=== PATIENT | female | born 1945 | race American Indian/Alaskan Native ===

== ENCOUNTER 2018-03-01 23:59 | Inpatient (IN) | payer OTHER ==
[2018-03-02 00:12] VITALS: BMI 19.3
[2018-03-02] MEDS ORDERED: Sodium Chloride 0.9% 500 ML IV STA (00:28)
--- NOTE | 2018-03-02 00:35 | ED PDOC ---
Arrival/HPI - General Chief Complaint: Medical Clearance Time Seen by Provider: 03/02/18 00:04 Historian: Patient - History of Present Illness Narrative History of Present Illness (Text): 03/02/18 00:32 Savanah Pace is a 72 year old female, with an unknown medical history, who presents to the emergency department from [facility] for AMS and leg pain. Patient is a poor historian. Patient is acting bizarre and has times and dates confused. Patient denies any previous complaints. Limited HPI and ROS due to patient's mental status. Time/Duration: Prior to Arrival Symptom Onset: Gradual Symptom Course: Unchanged Activities at Onset: Light Context: Home ([facility]) Past Medical History - Provider Review Nursing Documentation Reviewed: Yes - Psychiatric Hx Substance Use: No - Anesthesia Hx Anesthesia: No Hx Anesthesia Reactions: No Hx Malignant Hyperthermia: No Family/Social History - Physician Review Nursing Documentation Reviewed: Yes Family/Social History: Unknown Family HX Smoking Status: Smoker Currrent Status Unknown Hx Alcohol Use: No Hx Substance Use: No Allergies/Home Meds Allergies/Adverse Reactions: Allergies No Known Allergies Allergy (Verified 03/02/18 00:13) Home Medications: Home Meds Medication Instructions Recorded Confirmed Unobtainable 03/02/18 03/02/18 Review of Systems - Review of Systems Systems not reviewed;Unavailable: Altered Mental Status Physical Exam Vital Signs Reviewed: Yes Vital Signs Temp Pulse Resp BP Pulse Ox 03/02/18 06:14 88 18 131/77 98 03/02/18 03:58 98.4 F 91 H 18 138/70 98 03/02/18 03:00 91 H 142/72 03/02/18 01:50 101.9 F H 03/02/18 01:11 101.9 F H 110 H 18 171/81 H 97 03/02/18 00:15 99.8 F H 110 H 18 171/81 H 97 Temperature: Febrile Blood Pressure: Hypertensive Pulse: Tachycardic Respiratory Rate: Normal Appearance: Positive for: Well-Appearing, Non-Toxic, Comfortable Pain Distress: None Mental Status: Positive for: Confused. No: Alert and Oriented X 3 - Systems Exam Head: Present: Atraumatic, Normocephalic Pupils: Present: PERRL Extroacular Muscles: Present: EOMI Conjunctiva: Present: Normal Ears: Present: Normal, NORMAL TM, Erythema, Normal Canal, TM Bulging, Fluid, TM Perf, Other Mouth: Present: Moist Mucous Membranes Neck: Present: Normal Range of Motion Respiratory/Chest: Present: Clear to Auscultation, Good Air Exchange. No: Respiratory Distress, Accessory Muscle Use Cardiovascular: Present: Regular Rate and Rhythm, Normal S1, S2. No: Murmurs Abdomen: Present: Normal Bowel Sounds. No: Tenderness, Distention, Peritoneal Signs Back: Present: Normal Inspection Upper Extremity: Present: Normal Inspection. No: Cyanosis, Edema Lower Extremity: Present: Normal Inspection. No: Edema Neurological: Present: GCS=15, CN II-XII Intact, Speech Normal Skin: Present: Warm, Dry, Normal Color. No: Rashes Psychiatric: Present: Alert, Other (Acting bizarre). No: Oriented x 3 ( Oriented x 1) Medical Decision Making ED Course and Treatment: 03/02/18 00:38 Impression: 72 year old female presents to the emergency department from [facility] for AMS. pt denies complaints at this time. pt febrile on arrival. states lives by herself at [facility]. no famiy bedside. pt cannot provide further hx- suspect sepsis Plan: -- VBS shock panel -- CT Head -- CT Chest -- EKG -- Labs -- Cardiac Enzymes -- Acetaminophen -- Magnesium -- Salicylate -- Urine Culture -- Blood Culture -- Influenza A B -- Urinalysis -- Reassess and disposition Progress Notes: 03/02/18 01:04 EKG reviewed, shows Sinus Tachycardia at 101 bpm. LVH no previous for comparison. Non-specific T wave changes 03/02/18 02:05 CT Head reviewed, shows: Brain: Periventricular hypoattenuation is likely related to small vessel disease. Limited evaluation due to significant streak artifact. There is a 4.9 mm focal slight high density in the left temporal , on image 5 series 6 it is unclear if its artifactual. Consider close interval followup followup as clinically indicated. Ventricles: Unremarkable. No ventriculomegaly. Bones/joints: Unremarkable. No acute fracture. Soft tissues: Unremarkable. Sinuses: Unremarkable as visualized. No acute sinusitis. Mastoid air cells: Unremarkable as visualized. No mastoid effusion. IMPRESSION: Limited evaluation due to significant streak artifact. There is a 4.9 mm focal slight high density in the left temporal , on image 5 series 6 it is unclear if its artifactual. Consider close interval followup followup as clinically indicated. 03/02/18 02:21 noted fever, leukocytosis, pt given empiric levaquin as she reports mild cough and rhinorrhea. covered with tamiflu. case discussed wiht dr fernández accepts for hospitalist for ams, sepsis 03/02/18 04:03 CT Chest reviewd, shows: Chest: Prominent thyroid. 2 cm right upper lobe nodule situated along the minor fissure. Abnormal reticular prominence in the right upper lobe and left lower lobe. No dense consolidation. Basilar atelectasis. Small mediastinal lymph nodes present. Normal caliber aorta. Tiny bilateral pleural and pericardial effusions. Visualized upper abdomen is unremarkable. No pneumothorax. Mild degenerative change of the spine. IMPRESSION: Multilobar pneumonia, with a more focal area of masslike prominence in the inferior right upper lobe along the fissure. Followup to complete resolution recommended. - Lab Interpretations Lab Results: 03/02/18 00:45 03/02/18 00:45 Lab Results 03/02/18 02:00: Urine Opiates Screen Positive H, Urine Methadone Screen Negative , Ur Barbiturates Screen Negative, Ur Phencyclidine Scrn Negative, Ur Amphetamines Screen Negative, U Benzodiazepines Scrn Negative, U Oth Cocaine Metabols Negative, U Cannabinoids Screen Negative 03/02/18 02:00: Urine Color Yellow, Urine Appearance Clear, Urine pH 7.0, Ur Specific [place] 1.015, Urine Protein Negative, Urine Glucose (UA) Negative, Urine Ketones Negative, Urine Blood Moderate H, Urine Nitrate Negative, Urine Bilirubin Negative, Urine Urobilinogen 0.2, Ur Leukocyte Esterase Negative, Urine RBC 2 - 5, Urine WBC 0 - 2, Ur Epithelial Cells 0 - 2 03/02/18 00:45: Alcohol, Quantitative < 10 03/02/18 00:45: Salicylates < 1 L, Acetaminophen < 10.0 L 03/02/18 00:45: Sodium 140, Chloride 103, Potassium 4.2, Carbon Dioxide 28, Anion Gap 13, BUN 25 H, Creatinine 1.3 H, Est GFR ( Amer) 48, Est GFR ( Non-Af Amer) 40, Random Glucose 108, Calcium 9.8, Magnesium 1.9, Total Bilirubin 0.3, AST 47 H, ALT 27, Alkaline Phosphatase 141 H, Lactate Dehydrogenase 643, Total Creatine Kinase 87, Troponin I 0.05, Total Protein 7.9 , Albumin 3.9, Globulin 4.0, Albumin/Globulin Ratio 1.0 L 03/02/18 00:45: PT 12.5, INR 1.09 H, APTT 31.8 03/02/18 00:45: WBC 14.0 H, RBC 3.95, Hgb 11.8 L, Hct 36.3, MCV 91.9, MCH 29.9, MCHC 32.5, RDW 13.5, Plt Count 298, MPV 9.0, Gran % 85.5 H, Lymph % (Auto) 7.1 L , [place] % (Auto) 3.6, Eos % (Auto) 3.7, Baso % (Auto) 0.1, Gran # 11.97 H, Lymph # (Auto) 1.0 L, [place] # (Auto) 0.5, Eos # (Auto) 0.5, Baso # (Auto) 0.02 03/02/18 00:45: Influenza Typ A,B (EIA) Negative for flu a/b 03/02/18 00:45: pO2 29 L, VBG pH 7.42, VBG pCO2 44.0, VBG HCO3 28.5 H, VBG Total CO2 29.9 H, VBG O2 Sat (Calc) 61.6, VBG Base Excess 3.4 H, VBG Potassium 4.1, Sodium 139.0, Chloride 104.0, Glucose 109 H, Lactate 0.9, FiO2 21.0, Venous Blood Potassium 4.1 - RAD Interpretation Radiology Orders: 03/02/18 00:26 CHEST ONE VIEW [RAD] Stat 03/02/18 00:27 HEAD W/O CONTRAST [CT] Stat - Medication Orders Current Medication Orders: Acetaminophen (Tylenol 325mg Tab) 650 mg PO Q6H PRN PRN Reason: Fever >100.4 F Albuterol/Ipratropium (Duoneb 3 Mg/0.5 Mg (3 Ml) Ud) 3 ml IH Q2H PRN PRN Reason: Shortness of Breath Amlodipine Besylate (Norvasc) 5 mg PO DAILY ELMER Last Admin: 03/02/18 03:00 Dose: 5 mg MAR Pulse and Blood Pressure Document 03/02/18 03:00 AD (Rec: 03/02/18 03:57 AD [id number]) Pulse Pulse Rate (60-90) 91 Blood Pressure Blood Pressure (100/60-150/90) 142/72 Heparin Sodium (Porcine) (Heparin) 5,000 units SC Q12 ELMER PRN Reason: Protocol Sodium Chloride (Sodium Chloride 0.9%) 1,000 mls @ 100 mls/hr IV .Q10H ELMER Last Admin: 03/02/18 03:57 Dose: 100 mls/hr eMAR Start Stop Document 03/02/18 03:57 AD (Rec: 03/02/18 03:58 AD [id number]) Intravenous Solution Start Date 03/02/18 Start Time 02:30 Levofloxacin/Dextrose (Levaquin 750mg) 750 mg in 150 mls @ 100 mls/hr IVPB Q48H ELMER PRN Reason: Protocol Pantoprazole Sodium (Protonix Ec Tab) 40 mg PO 0600 ELMER Discontinued Medications Acetaminophen (Tylenol 325mg Tab) 975 mg PO STAT STA Stop: 03/02/18 00:28 Last Admin: 03/02/18 01:50 Dose: 975 mg MAR Pain/Vitals Document 03/02/18 01:50 AD (Rec: 03/02/18 01:50 AD [id number]) Vitals Temperature (97.6 F-99.6 F) 101.9 F Temperature Source Rectal Sodium Chloride (Sodium Chloride 0.9%) 500 mls @ 999 mls/hr IV .Q31M STA Stop: 03/02/18 00:58 Last Admin: 03/02/18 01:10 Dose: 999 mls/hr eMAR Start Stop Document 03/02/18 01:10 AD (Rec: 03/02/18 01:50 AD [id number]) Intravenous Solution Start Date 03/02/18 Start Time 01:50 Levofloxacin/Dextrose (Levaquin 750mg) 750 mg in 150 mls @ 100 mls/hr IVPB STAT STA PRN Reason: Protocol Stop: 03/02/18 02:45 Last Admin: 03/02/18 01:50 Dose: 100 mls/hr eMAR Start Stop Document 03/02/18 01:50 AD (Rec: 03/02/18 01:50 AD [id number]) Intravenous Solution Start Date 03/02/18 Start Time 01:50 Oseltamivir Phosphate (Tamiflu Cap) 75 mg PO STAT STA PRN Reason: Protocol Stop: 03/02/18 01:33 Last Admin: 03/02/18 01:50 Dose: 75 mg - Kemibe Statement The provider has reviewed the documentation as recorded by the Kemibsugey Davis All medical record entries made by the Kemibsugey were at my direction and personally dictated by me. I have reviewed the chart and agree that the record accurately reflects my personal performance of the history, physical exam, medical decision making, and the department course for this patient. I have also personally directed, reviewed, and agree with the discharge instructions and disposition. Disposition/Present on Arrival - Present on Arrival Any Indicators Present on Arrival: No History of DVT/PE: No History of Uncontrolled Diabetes: No Urinary Catheter: No History of Decub. Ulcer: No History Surgical Site Infection Following: None - Disposition Have Diagnosis and Disposition been Completed?: Yes Diagnosis: Pneumonia, Altered mental state Disposition: HOSPITALIZED Disposition Time: 04:00 Condition: FAIR
[2018-03-02 01:08] LABS: BASO # 0.02 K/mm3 (0.0-2.0); BASO % 0.1 % (0.0-3.0); EOS # 0.5 (0.0-0.7); EOS % 3.7 % (1.5-5.0); GRAN # 11.97 (1.4-6.5); GRAN % 85.5 % (50.0-68.0); HEMOGLOBIN 11.8 g/dL (12.0-16.0); LYMPH % 7.1 % (22.0-35.0); MEAN CELL VOLUME 91.9 fl (80.0-105.0); MEAN CORPUSCULAR HEMOGLOBIN 29.9 pg (25.0-35.0); MEAN CORPUSCULAR HGB CONC 32.5 g/dl (31.0-37.0); MONO # 0.5 (0.1-0.6); MONO % 3.6 % (1.0-6.0); RBC 3.95 10^6/uL (3.5-6.1); RED CELL DISTRIBUTION WIDTH 13.5 % (11.5-14.5)
[2018-03-02] MEDS ORDERED: cefTRIAXone 1 gm 1 GM/100 ML BAG IVPB STA (01:10)
[2018-03-02 01:13] LABS: VENOUS BLOOD GAS BASE EXCESS 3.4 mmol/L (0.0-2.0); VENOUS BLOOD GAS PO2 29 mm/Hg (30-55); VENOUS BLOOD PH 7.42 (7.32-7.43)
[2018-03-02] MEDS ORDERED: levoFLOXacin 750 mg in D5W 750 MG/150 ML BAG IVPB STA (01:16)
[2018-03-02 01:24] LABS: ALBUMIN 3.9 g/dL (3.0-4.8); CALCIUM 9.8 mg/dL (8.4-10.5)
[2018-03-02 01:28] LABS: INR 1.09 (0.93-1.08); PARTIAL THROMBOPLASTIN TIME 31.8 Seconds (25.1-36.5); PROTHROMBIN TIME 12.5 SECONDS (9.4-12.5)
[2018-03-02 01:35] LABS: TROPONIN I 0.05 ng/mL
[2018-03-02 01:43] LABS: ACETAMINOPHEN < 10.0 ug/ml (10.0-20.0); SALICYLATE < 1 mg/dL (2.0-20.0)
[2018-03-02 02:30] LABS: URINE BILIRUBIN NEGATIVE (NEGATIVE); URINE BLOOD MODERATE (NEGATIVE); URINE GLUCOSE (UA) NEGATIVE (NEGATIVE); URINE LEUKOCYTE ESTERASE NEGATIVE Leu/uL (NEGATIVE); URINE PROTEIN NEGATIVE mg/dL (<30 mg/dL); URINE UROBILINOGEN 0.2 E.U./dL (<1 E.U./dL)
[2018-03-02 02:35] LABS: URINE APPEARANCE CLEAR (CLEAR); URINE COLOR YELLOW (YELLOW)
[2018-03-02 02:48] LABS: BARBITURATES, UR NEGATIVE (NEGATIVE); BENZODIAZEPINES, UR NEGATIVE (NEGATIVE); OPIATES, UR POSITIVE (NEGATIVE); PHENCYCLIDINE, UR NEGATIVE (NEGATIVE)
--- NOTE | 2018-03-02 02:50 | CP.PCM.HP ---
<Francis Dupree - Last Filed: 03/02/18 02:35> History of Present Illness - History of Present Illness History of Present Illness: CC: AMS Pt is a 72 yo F with questionable PMH of asthma, urinary incontinence, HTN, UT, and CVA brought to ED by EMS due to AMS. Pt is a poor historian. Pt states that she was feeling short of breath earlier today, above her baseline dyspnea due to asthma. However, at the time of interview patient did not have any shortness of breath. According to ED notes, patient was complaining of leg pain, but denied leg pain on interview. Pt denies CP, SOB, n/v/d, abdominal pain, chills, LI, or dizziness. Further HPI, ROS, and medical history limited due to patient' s current mental status. PMH: Asthma, urinary incontinence, HTN, UT, and CVA Surg: Denied All: NKDA SH: 3-4 cigarettes/day for 40 yrs (formerly 2 ppd); denied EtOH or illicit drug use FHx: Non-contributory PMD: [place] Present on Admission - Present on Admission Any Indicators Present on Admission: No Review of Systems - Review of Systems Review of Systems: 12 point ROS limited due to patient's current mental status. Past Patient History - Past Social History Smoking Status: Smoker Currrent Status Unknown - PSYCHIATRIC Hx Substance Use: No - SURGICAL HISTORY Hx Surgeries: No - ANESTHESIA Hx Anesthesia: No Hx Anesthesia Reactions: No Hx Malignant Hyperthermia: No Meds Allergies/Adverse Reactions: Allergies Allergy/AdvReac Type Severity Reaction Status Date / Time No Known Allergies Allergy Verified 03/02/18 00:13 Physical Exam - Constitutional Appears: No Acute Distress - Head Exam Head Exam: NORMAL INSPECTION - Eye Exam Eye Exam: Normal appearance - ENT Exam ENT Exam: Normal Exam - Neck Exam Neck exam: Positive for: Normal Inspection - Respiratory Exam Respiratory Exam: Clear to Auscultation Bilateral. absent: Decreased Breath Sounds, Rales, Rhonchi, Wheezes, Respiratory Distress - Cardiovascular Exam Cardiovascular Exam: Tachycardia, +S1, +S2. absent: Diastolic murmur, Gallop, Rubs, Systolic Murmur - GI/Abdominal Exam GI & Abdominal Exam: Soft. absent: Distended, Guarding, Rebound, Tenderness - Extremities Exam Extremities exam: Positive for: normal inspection - Back Exam Back exam: NORMAL INSPECTION - Neurological Exam Neurological exam: Alert, CN II-XII Intact Additional comments: oriented x1 - Skin Skin Exam: Dry, Intact, Normal Color, Warm Results - Vital Signs Recent Vital Signs: Last Vital Signs Temp 101.9 F H 03/02/18 01:50 Pulse 110 H 03/02/18 01:11 Resp 18 03/02/18 01:11 BP 171/81 H 03/02/18 01:11 Pulse Ox 97 03/02/18 01:11 - Labs Result Diagrams: 03/02/18 00:45 03/02/18 00:45 Labs: Laboratory Results - last 24 hr 03/02/18 03/02/18 03/02/18 00:45 00:45 00:45 WBC 14.0 H RBC 3.95 Hgb 11.8 L Hct 36.3 MCV 91.9 MCH 29.9 MCHC 32.5 RDW 13.5 Plt Count 298 MPV 9.0 Gran % 85.5 H Lymph % (Auto) 7.1 L [place] % (Auto) 3.6 Eos % (Auto) 3.7 Baso % (Auto) 0.1 Gran # 11.97 H Lymph # (Auto) 1.0 L [place] # (Auto) 0.5 Eos # (Auto) 0.5 Baso # (Auto) 0.02 PT INR APTT pO2 29 L VBG pH 7.42 VBG pCO2 44.0 VBG HCO3 28.5 H VBG Total CO2 29.9 H VBG O2 Sat (Calc) 61.6 VBG Base Excess 3.4 H VBG Potassium 4.1 Sodium 139.0 Chloride 104.0 Glucose 109 H Lactate 0.9 FiO2 21.0 Potassium Carbon Dioxide Anion Gap BUN Creatinine Est GFR ( Amer) Est GFR (Non-Af Amer) Random Glucose Calcium Magnesium Total Bilirubin AST ALT Alkaline Phosphatase Lactate Dehydrogenase Total Creatine Kinase Troponin I Total Protein Albumin Globulin Albumin/Globulin Ratio Venous Blood Potassium 4.1 Urine Color Urine Appearance Urine pH Ur Specific House Urine Protein Urine Glucose (UA) Urine Ketones Urine Blood Urine Nitrate Urine Bilirubin Urine Urobilinogen Ur Leukocyte Esterase Salicylates Acetaminophen Alcohol, Quantitative Influenza Typ A,B (EIA) Negative for flu a/b 03/02/18 03/02/18 03/02/18 00:45 00:45 00:45 WBC RBC Hgb Hct MCV MCH MCHC RDW Plt Count MPV Gran % Lymph % (Auto) [place] % (Auto) Eos % (Auto) Baso % (Auto) Gran # Lymph # (Auto) [place] # (Auto) Eos # (Auto) Baso # (Auto) PT 12.5 INR 1.09 H APTT 31.8 pO2 VBG pH VBG pCO2 VBG HCO3 VBG Total CO2 VBG O2 Sat (Calc) VBG Base Excess VBG Potassium Sodium 140 Chloride 103 Glucose Lactate FiO2 Potassium 4.2 Carbon Dioxide 28 Anion Gap 13 BUN 25 H Creatinine 1.3 H Est GFR ( Amer) 48 Est GFR (Non-Af Amer) 40 Random Glucose 108 Calcium 9.8 Magnesium 1.9 Total Bilirubin 0.3 AST 47 H ALT 27 Alkaline Phosphatase 141 H Lactate Dehydrogenase 643 Total Creatine Kinase 87 Troponin I 0.05 Total Protein 7.9 Albumin 3.9 Globulin 4.0 Albumin/Globulin Ratio 1.0 L Venous Blood Potassium Urine Color Urine Appearance Urine pH Ur Specific House Urine Protein Urine Glucose (UA) Urine Ketones Urine Blood Urine Nitrate Urine Bilirubin Urine Urobilinogen Ur Leukocyte Esterase Salicylates < 1 L Acetaminophen < 10.0 L Alcohol, Quantitative Influenza Typ A,B (EIA) 03/02/18 03/02/18 00:45 02:00 WBC RBC Hgb Hct MCV MCH MCHC RDW Plt Count MPV Gran % Lymph % (Auto) [place] % (Auto) Eos % (Auto) Baso % (Auto) Gran # Lymph # (Auto) [place] # (Auto) Eos # (Auto) Baso # (Auto) PT INR APTT pO2 VBG pH VBG pCO2 VBG HCO3 VBG Total CO2 VBG O2 Sat (Calc) VBG Base Excess VBG Potassium Sodium Chloride Glucose Lactate FiO2 Potassium Carbon Dioxide Anion Gap BUN Creatinine Est GFR ( Amer) Est GFR (Non-Af Amer) Random Glucose Calcium Magnesium Total Bilirubin AST ALT Alkaline Phosphatase Lactate Dehydrogenase Total Creatine Kinase Troponin I Total Protein Albumin Globulin Albumin/Globulin Ratio Venous Blood Potassium Urine Color Yellow Urine Appearance Clear Urine pH 7.0 Ur Specific [place] 1.015 Urine Protein Negative Urine Glucose (UA) Negative Urine Ketones Negative Urine Blood Moderate H Urine Nitrate Negative Urine Bilirubin Negative Urine Urobilinogen 0.2 Ur Leukocyte Esterase Negative Salicylates Acetaminophen Alcohol, Quantitative < 10 Influenza Typ A,B (EIA) Assessment & Plan - Assessment and Plan (Free Text) Assessment: 72 yo F with PMH of asthma, HTN, UT, stroke admitted for sepsis of unclear etiology. Plan: 1. AMS 2/2 Sepsis - Etiology unclear, possibly 2/2 pneumonia - Febrile with leukocytosis - CXR shows possible infiltrate near right hilar region; follow up official read by radiologist - CT head showed 4.9 mm focal slight high density in the left temporal - Trop indeterminate x1, will trend x2 - EKG showed sinus tachycardia, rate 101, LVH, and non-specific t-wave changes - UA negative - Influenza negative Tamiflu given in ED prophylactically Droplet precautions for 24 hrs - VBG: pH 7.42, pO2 29, pCO2 44, lactate 0.9 - High res chest CT ordered - Procal ordered - Blood and urine cultures ordered - Levaquin - Tylenol prn for fever 2. JOSE - Likely prerenal - IVF - Cont to monitor 3. HTN - Norvasc 4. Asthma - Duoneb prn GI/DVT PPx - Protonix - Heparin Dispo: Will need follow up with Dr. Parham or pharmacy in AM for home medications. Pt seen and discussed in detail with Dr. Graves. Pramod Dupree, PGY1 <Andre Graves - Last Filed: 03/02/18 05:38> Results - Vital Signs Recent Vital Signs: Last Vital Signs Temp 98.4 F 03/02/18 03:58 Pulse 91 H 03/02/18 03:58 Resp 18 03/02/18 03:58 BP 138/70 03/02/18 03:58 Pulse Ox 98 03/02/18 03:58 - Labs Result Diagrams: 03/02/18 00:45 03/02/18 00:45 Attending/Attestation - Attestation I have personally seen and examined this patient.: Yes I have fully participated in the care of the patient.: Yes I have reviewed all pertinent clinical information: Yes Notes (Text): 03/02/18 05:38 Patient was seen when she was in bed # 7 in the ER . Agree with history , physical examination, assessment and plan.
[2018-03-02] MEDS ORDERED: Albuterol-Ipratrop 3 mg / 0.5 (3 ml) UD IH PRN (02:51)
[2018-03-02 02:52] LABS: URINE EPITHELIAL CELLS 0 - 2 /hpf (0-5); URINE WBC 0 - 2 /hpf (0-6)
[2018-03-02] MEDS: Sodium Chloride 0.9% 1,000 ML IV SCH ×2 (03:57→13:58)
[2018-03-02] MEDS: Pantoprazole 40 mg EC Tab PO SCH (06:15)
--- NOTE | 2018-03-02 09:58 | RAD ---
PROCEDURE: CHEST RADIOGRAPH, 1 VIEW HISTORY: ams COMPARISON: None available. FINDINGS: LUNGS: There is mild to moderate vascular congestion. There is no focal consolidation PLEURA: No pneumothorax or pleural fluid seen. CARDIOVASCULAR: Normal. OSSEOUS STRUCTURES: No significant abnormalities. VISUALIZED UPPER ABDOMEN: Normal. OTHER FINDINGS: None. IMPRESSION: Mild to moderate vascular congestion
[2018-03-02] MEDS ORDERED: Vancomycin 500mg in NS 500 MG/100 ML BAG IVPB SCH (10:00)
[2018-03-02] MEDS: cefTRIAXone 1 gm 1 GM/100 ML BAG IVPB SCH (10:44)
--- NOTE | 2018-03-02 12:41 | CT ---
PROCEDURE: CT HEAD WITHOUT CONTRAST. HISTORY: Altered mental status COMPARISON: None available. TECHNIQUE: Axial computed tomography images were obtained through the head/brain without intravenous contrast. Examination is limited due to extensive streak artifacts. Radiation dose: Total exam DLP = 1673.89 mGy-cm. This CT exam was performed using one or more of the following dose reduction techniques: Automated exposure control, adjustment of the mA and/or kV according to patient size, and/or use of iterative reconstruction technique. FINDINGS: HEMORRHAGE: No intracranial hemorrhage. BRAIN: There are moderate chronic microangiopathic changes. There is no mass, mass effect or abnormal extra-axial fluid collection. There are coarse atherosclerotic calcifications in the cavernous carotid artery. There is an apparent 4 mm high attenuation area in the left temporal lobe (image 5, series) VENTRICLES: Unremarkable. No hydrocephalus. CALVARIUM: The skull base and calvarium are normal. PARANASAL SINUSES: Predominantly clear. MASTOID AIR CELLS: Predominantly clear. OTHER FINDINGS: None. IMPRESSION: No acute intracranial abnormality. Moderate chronic microangiopathic changes. 4 mm focal increased density in the left temporal lobe is nonspecific and could be artifactual however small parenchymal hemorrhage cannot be entirely excluded. Examination is limited due to extensive streak artifacts. Clinical correlation and if clinically indicated short-term CT follow-up is recommended. A preliminary report was provided by [employer].
[2018-03-02 12:50] LABS: BASO # 0.02 K/mm3 (0.0-2.0); BASO % 0.1 % (0.0-3.0); EOS # 1.7 (0.0-0.7); EOS % 12.1 % (1.5-5.0); GRAN # 9.71 (1.4-6.5); GRAN % 71.5 % (50.0-68.0); HEMOGLOBIN 12.2 g/dL (12.0-16.0); LYMPH # 1.4 (1.2-3.4); LYMPH % 10.4 % (22.0-35.0); MEAN CELL VOLUME 91.9 fl (80.0-105.0); MEAN CORPUSCULAR HGB CONC 32.7 g/dl (31.0-37.0); MEAN PLATELET VOLUME 9.3 fl (7.0-11.0); MONO # 0.8 (0.1-0.6); MONO % 5.9 % (1.0-6.0); RBC 4.06 10^6/uL (3.5-6.1); RED CELL DISTRIBUTION WIDTH 13.5 % (11.5-14.5); WHITE BLOOD COUNT 13.6 10^3/ul (4.5-11.0)
[2018-03-02 13:08] LABS: TROPONIN I 0.06 ng/mL
[2018-03-02 13:23] LABS: ALB/GLOB RATIO 0.9 (1.1-1.8); ALBUMIN 3.7 g/dL (3.0-4.8); CALCIUM 9.9 mg/dL (8.4-10.5)
--- NOTE | 2018-03-02 16:29 | CT ---
PROCEDURE: CT Chest without contrast HISTORY: r/o pna COMPARISON: None. TECHNIQUE: Contiguous axial images were obtained through the chest without intravenous contrast enhancement. Sagittal and coronal reconstructions were performed. Radiation dose (DLP): 268.02 mGy-cm. This CT exam was performed using one or more of the following dose reduction techniques: Automated exposure control, adjustment of the mA and/or kV according to patient size, and/or use of iterative reconstruction technique. FINDINGS: LUNGS: There are centrilobular nodules and tree-in-bud opacities in the right upper lobe and left lower lobe. There is also confluent airspace disease in the left lower lobe. There are increased reticular markings and honeycombing in the subpleural right upper lobe. There is subsegmental atelectasis in both lower lobes. Also noted is a 2.2 x 1.8 cm spiculated nodule in the right upper lobe along the minor fissure. MEDIASTINUM: Unremarkable thoracic aorta. No aneurysm. There is mild cardiomegaly and small pericardial effusion. No pathologic lymphadenopathy. PLEURA: No pleural fluid. No pneumothorax. BONES: No fracture. No destructive lesion. UPPER ABDOMEN: Grossly unremarkable. OTHER FINDINGS: There is an enlarged multinodular thyroid gland. IMPRESSION: Findings are most compatible with infectious bronchiolitis in the right upper lobe and left lower lobe. Two point 2 cm spiculated subpleural nodule in the right upper lobe. Correlation with histopathologic is recommended to exclude malignancy. Metoprolol
--- NOTE | 2018-03-02 18:33 | CP.PCM.CON ---
History of Present Illness - History of Present Illness History of Present Illness: Infectious Disease Consultation: March 02, 2018 72 yo AA female presented with AMS. The patient lives at assisted living facility. The patient has a long medical history and has an extensive hospitalization history at [facility] [place]. The patient has multiple chronic medical issues. She is familiar to me from [facility] [place] hospitalizations. Will check her prior records there. The patient has complained of SOB, leg pains, and headaches although not at the same time. PMHx: Asthma, Urinary incontinence, HTN, RI, CVA PSHx: none given Allergies: NKDA Social Hx: 3-4 cig/day for 40 years. No EtOH or illicit drug use. Active Medications Acetaminophen (Tylenol 325mg Tab) 650 mg PO Q6H PRN PRN Reason: Fever >100.4 F Albuterol/Ipratropium (Duoneb 3 Mg/0.5 Mg (3 Ml) Ud) 3 ml IH Q2H PRN PRN Reason: Shortness of Breath Amlodipine Besylate (Norvasc) 5 mg PO DAILY [facility] Last Admin: 03/02/18 03:00 Dose: 5 mg Heparin Sodium (Porcine) (Heparin) 5,000 units SC Q12 [facility] PRN Reason: Protocol Last Admin: 03/02/18 10:45 Dose: 5,000 units Sodium Chloride (Sodium Chloride 0.9%) 1,000 mls @ 100 mls/hr IV .Q10H [facility] Last Admin: 03/02/18 13:58 Dose: 100 mls/hr Ceftriaxone Sodium (Rocephin 1 Gram Ivpb) 1 gm in 100 mls @ 100 mls/hr IVPB DAILY [facility] PRN Reason: Protocol Last Admin: 03/02/18 10:44 Dose: 100 mls/hr Pantoprazole Sodium (Protonix Ec Tab) 40 mg PO 0600 [facility] Last Admin: 03/02/18 06:15 Dose: 40 mg Family Hx: none given ROS: Unable to obtain consistent information from the patient. Past Patient History - Past Social History Smoking Status: Light Smoker < 10 Cigarettes Daily - MUSCULOSKELETAL/RHEUMATOLOGICAL Hx Falls: No - PSYCHIATRIC Hx Substance Use: No - SURGICAL HISTORY Hx Surgeries: No - ANESTHESIA Hx Anesthesia: No Hx Anesthesia Reactions: No Hx Malignant Hyperthermia: No Meds Allergies/Adverse Reactions: Allergies Allergy/AdvReac Type Severity Reaction Status Date / Time No Known Allergies Allergy Verified 03/02/18 00:13 - Medications Medications: Current Medications Acetaminophen (Tylenol 325mg Tab) 650 mg PO Q6H PRN PRN Reason: Fever >100.4 F Albuterol/Ipratropium (Duoneb 3 Mg/0.5 Mg (3 Ml) Ud) 3 ml IH Q2H PRN PRN Reason: Shortness of Breath Amlodipine Besylate (Norvasc) 5 mg PO DAILY [facility] Last Admin: 03/02/18 03:00 Dose: 5 mg Heparin Sodium (Porcine) (Heparin) 5,000 units SC Q12 [facility] PRN Reason: Protocol Last Admin: 03/02/18 10:45 Dose: 5,000 units Sodium Chloride (Sodium Chloride 0.9%) 1,000 mls @ 100 mls/hr IV .Q10H [facility] Last Admin: 03/02/18 13:58 Dose: 100 mls/hr Ceftriaxone Sodium (Rocephin 1 Gram Ivpb) 1 gm in 100 mls @ 100 mls/hr IVPB DAILY [facility] PRN Reason: Protocol Last Admin: 03/02/18 10:44 Dose: 100 mls/hr Pantoprazole Sodium (Protonix Ec Tab) 40 mg PO 0600 [facility] Last Admin: 03/02/18 06:15 Dose: 40 mg Physical Exam - Constitutional Appears: No Acute Distress, Chronically Ill - Head Exam Head Exam: ATRAUMATIC, NORMOCEPHALIC - Eye Exam Eye Exam: EOMI, PERRL Pupil Exam: NORMAL ACCOMODATION, PERRL - ENT Exam ENT Exam: Mucous Membranes Moist, Normal External Ear Exam, TM's Normal Bilaterally - Neck Exam Neck exam: Positive for: Full Rom, Normal Inspection - Respiratory Exam Respiratory Exam: Decreased Breath Sounds. absent: Rales, Rhonchi, Wheezes - Cardiovascular Exam Cardiovascular Exam: Tachycardia, +S1, +S2 - GI/Abdominal Exam GI & Abdominal Exam: Normal Bowel Sounds, Soft. absent: Distended, Tenderness - Extremities Exam Extremities exam: Positive for: full ROM. Negative for: tenderness - Neurological Exam Neurological exam: Alert, CN II-XII Intact Additional comments: AAO x 1-2 - Psychiatric Exam Psychiatric exam: Normal Affect, Normal Mood Additional comments: forgetful - Skin Skin Exam: Intact, Normal Color Results - Vital Signs Recent Vital Signs: Last Vital Signs Temp 98.6 F 03/02/18 17:37 Pulse 77 03/02/18 17:37 Resp 20 03/02/18 17:37 BP 140/58 L 03/02/18 17:37 Pulse Ox 99 03/02/18 14:57 - Labs Result Diagrams: 03/02/18 12:40 03/02/18 12:40 Labs: Laboratory Results - last 24 hr 03/02/18 03/02/18 03/02/18 06:46 12:40 12:40 WBC 13.6 H RBC 4.06 Hgb 12.2 Hct 37.3 MCV 91.9 MCH 30.0 MCHC 32.7 RDW 13.5 Plt Count 307 MPV 9.3 Gran % 71.5 H Lymph % (Auto) 10.4 L Lyman % (Auto) 5.9 Eos % (Auto) 12.1 H Baso % (Auto) 0.1 Gran # 9.71 H Lymph # (Auto) 1.4 Lyman # (Auto) 0.8 H Eos # (Auto) 1.7 H Baso # (Auto) 0.02 Sodium 142 Potassium 4.6 Chloride 105 Carbon Dioxide 29 Anion Gap 12 BUN 20 Creatinine 1.2 Est GFR ( Amer) 53 Est GFR (Non-Af Amer) 44 Random Glucose 95 Calcium 9.9 Total Bilirubin 0.4 AST 30 ALT 32 Alkaline Phosphatase 129 H Troponin I 0.08 D 0.06 D Total Protein 7.8 Albumin 3.7 Globulin 4.2 Albumin/Globulin Ratio 0.9 L Assessment & Plan - Assessment and Plan (Free Text) Assessment: 72 yo female with presentation of AMS and SOB. The patient has leukocytosis. She had multiple medical issues. Cannot rule out sepsis. Influenza testing has been negative. Started on Levaquin in ER. Renal insufficiency. Extensive hospitalization history at [facility]. Will check records there as she had a recent hospitalization there. Started on rocephin for antibiotic therapy on medical floor. Andrade cultures. Leukocytosis is showing left shift. Supportive care. Thank you for allowing me to participate in the care of the patient, we will follow with you.
--- NOTE | 2018-03-02 19:35 | CARD ---
APPROVED REPORT EKG Measurement Heart [id number] <Conclusion> Sinus tachycardia Possible Left atrial enlargement Left ventricular hypertrophy with repolarization abnormality Abnormal ECG
[2018-03-03] MEDS: Sodium Chloride 0.9% 1,000 ML IV SCH ×3 (05:20→17:34)
[2018-03-03] MEDS: Pantoprazole 40 mg EC Tab PO SCH (05:32)
[2018-03-03 06:10] LABS: MEAN CELL VOLUME 91.1 fl (80.0-105.0); MEAN CORPUSCULAR HEMOGLOBIN 29.7 pg (25.0-35.0); MEAN CORPUSCULAR HGB CONC 32.6 g/dl (31.0-37.0); MEAN PLATELET VOLUME 9.4 fl (7.0-11.0); RBC 4.04 10^6/uL (3.5-6.1); RED CELL DISTRIBUTION WIDTH 13.6 % (11.5-14.5); WHITE BLOOD COUNT 9.3 10^3/ul (4.5-11.0)
[2018-03-03 06:39] LABS: ALB/GLOB RATIO 0.9 (1.1-1.8); ALBUMIN 3.3 g/dL (3.0-4.8); CALCIUM 9.5 mg/dL (8.4-10.5)
--- NOTE | 2018-03-03 08:51 | MRI ---
PROCEDURE: MRI BRAIN WITHOUT CONTRAST HISTORY: follow up CT / showed temporal area hyperdensity COMPARISON: None. TECHNIQUE: Multiplanar, multisequence MR images of the brain were obtained without intravenous contrast enhancement. FINDINGS: HEMORRHAGE: None DWI: No evidence of an acute or early subacute infarction. BRAIN PARENCHYMA: Good corticomedullary differentiation is seen. Reiterated diffuse cerebral atrophy and extensive chronic microangiopathy. No suspicious extra-axial fluid collection is identified and the midline brain anatomy appears grossly nonfocal as imaged VENTRICLES: Unremarkable. No hydrocephalus. CRANIUM: Unremarkable. ORBITS: Grossly unremarkable. PARANASAL SINUSES/MASTOIDS: Clear VASCULAR SYSTEM: Skull base flow voids intact. OTHER FINDINGS: None. IMPRESSION: No definitive acute intracranial findings. No definite intracranial hemorrhage appreciable. Minimal partial volume averaging with the bony left middle cranial fossa is felt to be the etiology of the hyperdensity at the inferior left temporal lobe in prior CT 03/02/2018. Concordant preliminary report from [facility], 03/02/2018.
[2018-03-03] MEDS: cefTRIAXone 1 gm 1 GM/100 ML BAG IVPB SCH (10:04)
--- NOTE | 2018-03-03 13:58 | CP.PCM.PN ---
<Oliver Noriega - Last Filed: 03/03/18 13:51> Subjective - Date & Time of Evaluation Date of Evaluation: 03/03/18 Time of Evaluation: 13:51 - Subjective Subjective: Medicine Progress Note: Patient seen and assessed at bedside. No acute events overnight noted by patient or nursing staff. Patient reports that her presenting SOB has moderately improved since admission. She denies any further complaints at this time including fevers, chills, headache, changes in her vision, chest pain, cough, wheezing, abdominal pain, N/V/D/C, changes in urine color/frequency, dysuria, skin changes or any numbness/tingling/weakness of any extremity. Objective - Vital Signs/Intake and Output Vital Signs (last 24 hours): Temp Pulse Resp BP Pulse Ox 98.1 F 75 19 139/73 99 03/03/18 12:00 03/03/18 12:00 03/03/18 12:00 03/03/18 12:00 03/02/18 14:57 Intake and Output: 03/03/18 03/03/18 06:59 18:59 Intake Total 120 Output Total 500 Balance -380 - Medications Medications: Current Medications Acetaminophen (Tylenol 325mg Tab) 650 mg PO Q6H PRN PRN Reason: Fever >100.4 F Albuterol/Ipratropium (Duoneb 3 Mg/0.5 Mg (3 Ml) Ud) 3 ml IH Q2H PRN PRN Reason: Shortness of Breath Amlodipine Besylate (Norvasc) 5 mg PO DAILY [facility] Last Admin: 03/03/18 10:05 Dose: 5 mg Heparin Sodium (Porcine) (Heparin) 5,000 units SC Q12 [facility] PRN Reason: Protocol Last Admin: 03/03/18 10:04 Dose: Not Given Sodium Chloride (Sodium Chloride 0.9%) 1,000 mls @ 100 mls/hr IV .Q10H [facility] Last Admin: 03/03/18 10:04 Dose: Not Given Ceftriaxone Sodium (Rocephin 1 Gram Ivpb) 1 gm in 100 mls @ 100 mls/hr IVPB DAILY [facility] PRN Reason: Protocol Last Admin: 03/03/18 10:04 Dose: Not Given Nicotine (Nicoderm Cq) 1 patch TD DAILY [facility] Last Admin: 03/03/18 10:39 Dose: 1 patch Pantoprazole Sodium (Protonix Ec Tab) 40 mg PO 0600 [facility] Last Admin: 03/03/18 05:32 Dose: Not Given - Labs Labs: 03/03/18 05:30 03/03/18 05:30 PT 12.5 SECONDS (9.4-12.5) 03/02/18 00:45 INR 1.09 (0.93-1.08) H 03/02/18 00:45 APTT 31.8 Seconds (25.1-36.5) 03/02/18 00:45 - Constitutional Appears: Non-toxic, No Acute Distress - Head Exam Head Exam: ATRAUMATIC, NORMOCEPHALIC - Eye Exam Eye Exam: EOMI, Normal appearance Pupil Exam: NORMAL ACCOMODATION, PERRL - ENT Exam ENT Exam: Mucous Membranes Moist, Normal Exam - Neck Exam Neck Exam: Full ROM, Normal Inspection. absent: Lymphadenopathy, Tenderness - Respiratory Exam Respiratory Exam: Decreased Breath Sounds (RUL and LLL), NORMAL BREATHING PATTERN. absent: Accessory Muscle Use, Chest Wall Tenderness, Clear to Ausculation Bilateral, Prolonged Expiratory Phase, Rales, Rhonchi, Wheezes, Respiratory Distress, Stridor - Cardiovascular Exam Cardiovascular Exam: REGULAR RHYTHM, RRR, +S1, +S2. absent: Bradycardia, Tachycardia, Clicks, Diastolic murmur, Gallop, Irregular Rhythm, JVD, Rubs, +S4 , Murmur - GI/Abdominal Exam GI & Abdominal Exam: Soft, Normal Bowel Sounds. absent: Tenderness - Extremities Exam Extremities Exam: Full ROM, Normal Capillary Refill, Normal Inspection. absent : Calf Tenderness, Pedal Edema, Tenderness - Back Exam Back Exam: NORMAL INSPECTION - Neurological Exam Neurological Exam: Alert, Awake, CN II-XII Intact, Normal Gait, Oriented x3 - Psychiatric Exam Psychiatric exam: Normal Affect, Normal Mood - Skin Skin Exam: Dry, Intact, Normal Color, Warm Assessment and Plan - Assessment and Plan (Free Text) Assessment: 72 year old AA female with a past medical history significant for heroine abuse , asthma, HTN, PA, stroke and homelessness who was admitted for AMS secondary to RUL/LLL infectious bronchiolitis. Plan: 1. AMS secondary to RUL/LLL Infectious Bronchiolitis -Chest CT showed findings most compatible with RUL/LLL infectious bronchiolitis and 2cm spiculated subpleural nodule in the RUL -Chest X-Ray showed mild to moderate vascular congestion -Head CT and Brain MRI were negative for any acute intracranial processes -Currently afebrile (24 hours) and without leukocytosis (resolved), tachycardia , tachypnea or lactic acidosis -Procalcitonin elevated at 1.18 -Blood cultures negative for 24 hours -Rocephin 1gm IVPB daily (Day 2) -Normal Saline at 100mls/hr -Duonebs Q2H PRN for SOB and Tylenol PRN for fever -Neurology and ID consulted, all recommendations appreciated -PT/OT evaluation and treatment pending 2. History of HTN -Norvasc 5mg PO daily 3. History of Tobacco Abuse -Nicoderm CQ TD GI Prophylaxis: Protonix DVT Prophylaxis: Heparin Diet: Heart healthy Patient seen and case discussed with attending, Dr. Chen. <Denice Chen - Last Filed: 03/03/18 19:00> Objective - Vital Signs/Intake and Output Vital Signs (last 24 hours): Temp Pulse Resp BP Pulse Ox 98.1 F 75 19 139/73 99 03/03/18 12:00 03/03/18 12:00 03/03/18 12:00 03/03/18 12:00 03/02/18 14:57 Intake and Output: 03/03/18 03/03/18 06:59 18:59 Intake Total 120 Output Total 500 Balance -380 - Medications Medications: Current Medications Acetaminophen (Tylenol 325mg Tab) 650 mg PO Q6H PRN PRN Reason: Fever >100.4 F Albuterol/Ipratropium (Duoneb 3 Mg/0.5 Mg (3 Ml) Ud) 3 ml IH Q2H PRN PRN Reason: Shortness of Breath Amlodipine Besylate (Norvasc) 5 mg PO DAILY [facility] Last Admin: 03/03/18 10:05 Dose: 5 mg Heparin Sodium (Porcine) (Heparin) 5,000 units SC Q12 [facility] PRN Reason: Protocol Last Admin: 03/03/18 10:04 Dose: Not Given Sodium Chloride (Sodium Chloride 0.9%) 1,000 mls @ 100 mls/hr IV .Q10H [facility] Last Admin: 03/03/18 17:34 Dose: Not Given Ceftriaxone Sodium (Rocephin 1 Gram Ivpb) 1 gm in 100 mls @ 100 mls/hr IVPB DAILY [facility] PRN Reason: Protocol Last Admin: 03/03/18 10:04 Dose: Not Given Nicotine (Nicoderm Cq) 1 patch TD DAILY [facility] Last Admin: 03/03/18 10:39 Dose: 1 patch Pantoprazole Sodium (Protonix Ec Tab) 40 mg PO 0600 [facility] Last Admin: 03/03/18 05:32 Dose: Not Given - Labs Labs: 03/03/18 05:30 03/03/18 05:30 PT 12.5 SECONDS (9.4-12.5) 03/02/18 00:45 INR 1.09 (0.93-1.08) H 03/02/18 00:45 APTT 31.8 Seconds (25.1-36.5) 03/02/18 00:45 Attending/Attestation - Attestation I have personally seen and examined this patient.: Yes I have fully participated in the care of the patient.: Yes I have reviewed all pertinent clinical information, including history, physical exam and plan: Yes Notes (Text): 03/03/18 18:54 attending note; Patient seen and examined with the resident. Patient is a 72 year old female with a past medical history significant for heroine abuse, asthma, hypertension, stroke and homelessness who was admitted for confusion secondary toa sepsis. CT scan showed right upper lobe And left lower lobeinfectious bronchiolitis. patient is currently afebrile and nontoxic. patient is alert, awake and oriented. Ambulating fine. Continue IV Rocephin. ID evaluation appreciated. Cultures negative so far. CT Scan showed questionable haemorrhage. But MRI is negative. neurology evaluation appreciated. chronic renal insufficiency; baseline creatinine is 1.3. chronic opiate use. Drug abuse cessation is strongly advised. PT evaluation requested. powder worker evaluation appreciated For discharge planning. Upon discharge patient will follow-up with PMD of choice or [facility] clinic.
--- NOTE | 2018-03-03 14:59 | CP.PCM.CON ---
History of Present Illness - History of Present Illness History of Present Illness: 72 yr old woman with pmh of asthma, urinary incontinence, htn, mi and stroke was al tot he [facility] with questionable PMH of asthma, urinary incontinence, HTN, WI, and CVA brought to ED by EMS due to AMS. Pt is a poor historian. Pt states that she was feeling short of breath earlier today, above her baseline dyspnea due to asthma. However , at the time of interview patient did not have any shortness of breath. According to ED notes, patient was complaining of leg pain, but denied leg pain on interview. Pt denies CP, SOB, n/v/d, abdominal pain, chills, LI, or dizziness. Further HPI, ROS, and medical history limited due to patient's current mental status. 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 - MUSCULOSKELETAL/RHEUMATOLOGICAL Hx Falls: No - PSYCHIATRIC Hx Substance Use: No - SURGICAL HISTORY Hx Surgeries: No - ANESTHESIA Hx Anesthesia: No Hx Anesthesia Reactions: No Hx Malignant Hyperthermia: No Meds Allergies/Adverse Reactions: Allergies Allergy/AdvReac Type Severity Reaction Status Date / Time No Known Allergies Allergy Verified 03/02/18 00:13 - Medications Medications: Current Medications Acetaminophen (Tylenol 325mg Tab) 650 mg PO Q6H PRN PRN Reason: Fever >100.4 F Albuterol/Ipratropium (Duoneb 3 Mg/0.5 Mg (3 Ml) Ud) 3 ml IH Q2H PRN PRN Reason: Shortness of Breath Amlodipine Besylate (Norvasc) 5 mg PO DAILY [facility] Last Admin: 03/03/18 10:05 Dose: 5 mg Heparin Sodium (Porcine) (Heparin) 5,000 units SC Q12 [facility] PRN Reason: Protocol Last Admin: 03/03/18 10:04 Dose: Not Given Sodium Chloride (Sodium Chloride 0.9%) 1,000 mls @ 100 mls/hr IV .Q10H [facility] Last Admin: 03/03/18 10:04 Dose: Not Given Ceftriaxone Sodium (Rocephin 1 Gram Ivpb) 1 gm in 100 mls @ 100 mls/hr IVPB DAILY [facility] PRN Reason: Protocol Last Admin: 03/03/18 10:04 Dose: Not Given Nicotine (Nicoderm Cq) 1 patch TD DAILY [facility] Last Admin: 03/03/18 10:39 Dose: 1 patch Pantoprazole Sodium (Protonix Ec Tab) 40 mg PO 0600 [facility] Last Admin: 03/03/18 05:32 Dose: Not Given Results - Vital Signs Recent Vital Signs: Last Vital Signs Temp 98.1 F 03/03/18 12:00 Pulse 75 03/03/18 12:00 Resp 19 03/03/18 12:00 BP 139/73 03/03/18 12:00 Pulse Ox 99 03/02/18 14:57 - Labs Result Diagrams: 03/03/18 05:30 03/03/18 05:30 Labs: Laboratory Results - last 24 hr 03/03/18 03/03/18 05:30 05:30 WBC 9.3 D RBC 4.04 Hgb 12.0 Hct 36.8 MCV 91.1 MCH 29.7 MCHC 32.6 RDW 13.6 Plt Count 293 MPV 9.4 Sodium 142 Potassium 3.8 Chloride 107 Carbon Dioxide 27 Anion Gap 12 BUN 23 H Creatinine 1.3 H Est GFR ( Amer) 48 Est GFR (Non-Af Amer) 40 Random Glucose 92 Calcium 9.5 Phosphorus 3.8 Magnesium 2.2 Total Bilirubin 0.3 AST 41 H D ALT 30 Alkaline Phosphatase 111 Total Protein 7.1 Albumin 3.3 Globulin 3.8 Albumin/Globulin Ratio 0.9 L
--- NOTE | 2018-03-03 19:02 | CP.PCM.PN ---
Subjective - Date & Time of Evaluation Date of Evaluation: 03/03/18 Time of Evaluation: 17:30 - Subjective Subjective: Infectious Disease Follow Up: March 03, 2018 72 yo AA female presented with AMS. The patient lives at assisted living facility. The patient has a long medical history and has an extensive hospitalization history at [facility]. The patient has multiple chronic medical issues. She is familiar to me from [facility] hospitalizations. Will check her prior records there. The patient has complained of SOB, leg pains, and headaches although not at the same time. Appears to be improved. Less SOB. Still diffuse pain. Objective - Vital Signs/Intake and Output Vital Signs (last 24 hours): Temp Pulse Resp BP Pulse Ox 98.1 F 75 19 139/73 99 03/03/18 12:00 03/03/18 12:00 03/03/18 12:00 03/03/18 12:00 03/02/18 14:57 Intake and Output: 03/03/18 03/03/18 06:59 18:59 Intake Total 120 Output Total 500 Balance -380 - Medications Medications: Current Medications Acetaminophen (Tylenol 325mg Tab) 650 mg PO Q6H PRN PRN Reason: Fever >100.4 F Albuterol/Ipratropium (Duoneb 3 Mg/0.5 Mg (3 Ml) Ud) 3 ml IH Q2H PRN PRN Reason: Shortness of Breath Amlodipine Besylate (Norvasc) 5 mg PO DAILY [facility] Last Admin: 03/03/18 10:05 Dose: 5 mg Heparin Sodium (Porcine) (Heparin) 5,000 units SC Q12 [facility] PRN Reason: Protocol Last Admin: 03/03/18 10:04 Dose: Not Given Sodium Chloride (Sodium Chloride 0.9%) 1,000 mls @ 100 mls/hr IV .Q10H [facility] Last Admin: 03/03/18 17:34 Dose: Not Given Ceftriaxone Sodium (Rocephin 1 Gram Ivpb) 1 gm in 100 mls @ 100 mls/hr IVPB DAILY [facility] PRN Reason: Protocol Last Admin: 03/03/18 10:04 Dose: Not Given Nicotine (Nicoderm Cq) 1 patch TD DAILY [facility] Last Admin: 03/03/18 10:39 Dose: 1 patch Pantoprazole Sodium (Protonix Ec Tab) 40 mg PO 0600 [facility] Last Admin: 03/03/18 05:32 Dose: Not Given - Labs Labs: 03/03/18 05:30 03/03/18 05:30 PT 12.5 SECONDS (9.4-12.5) 03/02/18 00:45 INR 1.09 (0.93-1.08) H 03/02/18 00:45 APTT 31.8 Seconds (25.1-36.5) 03/02/18 00:45 - Constitutional Appears: Non-toxic, No Acute Distress - Head Exam Head Exam: ATRAUMATIC, NORMOCEPHALIC - Eye Exam Eye Exam: EOMI, PERRL Pupil Exam: NORMAL ACCOMODATION, PERRL - ENT Exam ENT Exam: Mucous Membranes Moist, Normal External Ear Exam, TM's Normal Bilaterally - Neck Exam Neck Exam: Full ROM, Normal Inspection - Respiratory Exam Respiratory Exam: Decreased Breath Sounds. absent: Rales, Rhonchi, Wheezes - Cardiovascular Exam Cardiovascular Exam: REGULAR RHYTHM, RRR, +S1, +S2 - GI/Abdominal Exam GI & Abdominal Exam: Soft, Normal Bowel Sounds. absent: Distended, Tenderness - Extremities Exam Extremities Exam: Full ROM, Normal Inspection - Neurological Exam Neurological Exam: Alert, Awake, CN II-XII Intact, Oriented x3 Additional comments: forgetful - Psychiatric Exam Psychiatric exam: Normal Affect, Normal Mood - Skin Skin Exam: Dry, Intact, Normal Color Assessment and Plan - Assessment and Plan (Free Text) Assessment: 72 yo female with presentation of AMS and SOB. The patient has leukocytosis. She had multiple medical issues. Cannot rule out sepsis. Influenza testing has been negative. Started on Levaquin in ER. Renal insufficiency. Extensive hospitalization history at [facility]. Will check records there as she had a recent hospitalization there. Started on rocephin for antibiotic therapy on medical floor. Andrade cultures. Leukocytosis is showing left shift. Cultures no growth to date. Today leukocytosis has normalized. Supportive care. Thank you for allowing me to participate in the care of the patient, we will follow with you.
[2018-03-04] MEDS ORDERED: levoFLOXacin 750 mg in D5W 750 MG/150 ML BAG IVPB SCH (02:30)
[2018-03-04] MEDS: Pantoprazole 40 mg EC Tab PO SCH (06:00)
[2018-03-04 07:41] LABS: HEMOGLOBIN 12.3 g/dL (12.0-16.0); MEAN CELL VOLUME 89.4 fl (80.0-105.0); MEAN CORPUSCULAR HEMOGLOBIN 30.2 pg (25.0-35.0); MEAN CORPUSCULAR HGB CONC 33.8 g/dl (31.0-37.0); MEAN PLATELET VOLUME 9.1 fl (7.0-11.0); RBC 4.07 10^6/uL (3.5-6.1); RED CELL DISTRIBUTION WIDTH 13.4 % (11.5-14.5); WHITE BLOOD COUNT 9.8 10^3/ul (4.5-11.0)
[2018-03-04 07:51] LABS: ALB/GLOB RATIO 0.9 (1.1-1.8); ALBUMIN 3.5 g/dL (3.0-4.8); CALCIUM 9.9 mg/dL (8.4-10.5)
[2018-03-04] MEDS: cefTRIAXone 1 gm 1 GM/100 ML BAG IVPB SCH (10:46)
[2018-03-04 10:50] VITALS: BP 139/76
[2018-03-04] MEDS ORDERED: levoFLOXacin 500 MG TAB PO SCH (11:30)
--- NOTE | 2018-03-04 13:55 | CP.PCM.PN ---
Subjective - Date & Time of Evaluation Date of Evaluation: 03/04/18 Time of Evaluation: 13:00 - Subjective Subjective: Infectious Disease Follow Up: March 04, 2018 72 yo AA female presented with AMS. The patient lives at assisted living facility. The patient has a long medical history and has an extensive hospitalization history at [facility]. The patient has multiple chronic medical issues. She is familiar to me from [facility] hospitalizations. Will check her prior records there. The patient has complained of SOB, leg pains, and headaches although not at the same time. Appears to be improved. Less SOB. Still complaining of diffuse pain. Pain medication seeking? Objective - Vital Signs/Intake and Output Vital Signs (last 24 hours): Temp Pulse Resp BP Pulse Ox 98 F 72 20 139/76 97 03/04/18 07:42 03/04/18 10:44 03/04/18 07:42 03/04/18 10:44 03/04/18 07:42 Intake and Output: 03/04/18 03/04/18 06:59 18:59 Intake Total 900 Balance 900 - Medications Medications: Current Medications Acetaminophen (Tylenol 325mg Tab) 650 mg PO Q6H PRN PRN Reason: Fever >100.4 F Last Admin: 03/03/18 21:47 Dose: 650 mg Albuterol/Ipratropium (Duoneb 3 Mg/0.5 Mg (3 Ml) Ud) 3 ml IH Q2H PRN PRN Reason: Shortness of Breath Amlodipine Besylate (Norvasc) 5 mg PO DAILY [facility] Last Admin: 03/04/18 10:44 Dose: 5 mg Heparin Sodium (Porcine) (Heparin) 5,000 units SC Q12 [place] PRN Reason: Protocol Last Admin: 03/04/18 10:43 Dose: 5,000 units Levofloxacin (Levaquin) 500 mg PO DAILY [facility] PRN Reason: Protocol Stop: 03/09/18 11:31 Last Admin: 03/04/18 12:36 Dose: 500 mg Nicotine (Nicoderm Cq) 1 patch TD DAILY [facility] Last Admin: 03/04/18 10:44 Dose: 1 patch Pantoprazole Sodium (Protonix Ec Tab) 40 mg PO 0600 [facility] Last Admin: 03/04/18 06:00 Dose: Not Given - Labs Labs: 03/04/18 07:35 03/04/18 07:35 PT 12.5 SECONDS (9.4-12.5) 03/02/18 00:45 INR 1.09 (0.93-1.08) H 03/02/18 00:45 APTT 31.8 Seconds (25.1-36.5) 03/02/18 00:45 - Constitutional Appears: Non-toxic, No Acute Distress - Head Exam Head Exam: ATRAUMATIC, NORMOCEPHALIC - Eye Exam Eye Exam: EOMI, PERRL Pupil Exam: NORMAL ACCOMODATION, PERRL - ENT Exam ENT Exam: Mucous Membranes Moist, Normal External Ear Exam, TM's Normal Bilaterally - Neck Exam Neck Exam: Full ROM, Normal Inspection - Respiratory Exam Respiratory Exam: Decreased Breath Sounds. absent: Rales, Rhonchi, Wheezes - Cardiovascular Exam Cardiovascular Exam: REGULAR RHYTHM, RRR, +S1, +S2 - GI/Abdominal Exam GI & Abdominal Exam: Soft, Normal Bowel Sounds. absent: Distended, Tenderness - Extremities Exam Extremities Exam: Full ROM, Normal Inspection - Neurological Exam Neurological Exam: Alert, Awake, CN II-XII Intact, Oriented x3 Additional comments: forgetful - Psychiatric Exam Psychiatric exam: Normal Affect, Normal Mood - Skin Skin Exam: Dry, Intact, Normal Color Assessment and Plan - Assessment and Plan (Free Text) Assessment: 72 yo female with presentation of AMS and SOB. The patient has leukocytosis. She had multiple medical issues. Cannot rule out sepsis. Influenza testing has been negative. Started on Levaquin in ER. Renal insufficiency. Extensive hospitalization history at [facility]. Will check records there as she had a recent hospitalization there. Started on rocephin for antibiotic therapy on medical floor. Andrade cultures. Initial leukocytosis is showing left shift. Cultures no growth to date. Leukocytosis has normalized for the past two days. She remains on Levaquin for treatment. Supportive care. Thank you for allowing me to participate in the care of the patient, we will follow with you.
--- NOTE | 2018-03-04 14:57 | CP.PCM.DIS ---
<Oliver Noriega - Last Filed: 03/04/18 14:51> Provider - Provider Date of Admission: 03/02/18 02:19 Attending physician: Denice Chen MD Consults: Neuro: Azar ID: Go Time Spent in preparation of Discharge (in minutes): 41 Diagnosis - Discharge Diagnosis (1) Pneumonia Status: Acute Hospital Course - Lab Results Lab Results: Most Recent Lab Values WBC 9.8 10^3/ul (4.5-11.0) 03/04/18 07:35 RBC 4.07 10^6/uL (3.5-6.1) 03/04/18 07:35 Hgb 12.3 g/dL (12.0-16.0) 03/04/18 07:35 Hct 36.4 % (36.0-48.0) 03/04/18 07:35 MCV 89.4 fl (80.0-105.0) 03/04/18 07:35 MCH 30.2 pg (25.0-35.0) 03/04/18 07:35 MCHC 33.8 g/dl (31.0-37.0) 03/04/18 07:35 RDW 13.4 % (11.5-14.5) 03/04/18 07:35 Plt Count 306 10^3/uL (120.0-450.0) 03/04/18 07:35 MPV 9.1 fl (7.0-11.0) 03/04/18 07:35 Gran % 71.5 % (50.0-68.0) H 03/02/18 12:40 Lymph % (Auto) 10.4 % (22.0-35.0) L 03/02/18 12:40 [place] % (Auto) 5.9 % (1.0-6.0) 03/02/18 12:40 Eos % (Auto) 12.1 % (1.5-5.0) H 03/02/18 12:40 Baso % (Auto) 0.1 % (0.0-3.0) 03/02/18 12:40 Gran # 9.71 (1.4-6.5) H 03/02/18 12:40 Lymph # (Auto) 1.4 (1.2-3.4) 03/02/18 12:40 [place] # (Auto) 0.8 (0.1-0.6) H 03/02/18 12:40 Eos # (Auto) 1.7 (0.0-0.7) H 03/02/18 12:40 Baso # (Auto) 0.02 K/mm3 (0.0-2.0) 03/02/18 12:40 PT 12.5 SECONDS (9.4-12.5) 03/02/18 00:45 INR 1.09 (0.93-1.08) H 03/02/18 00:45 APTT 31.8 Seconds (25.1-36.5) 03/02/18 00:45 pO2 29 mm/Hg (30-55) L 03/02/18 00:45 VBG pH 7.42 (7.32-7.43) 03/02/18 00:45 VBG pCO2 44.0 (40-60) 03/02/18 00:45 VBG HCO3 28.5 mmol/l (21-28) H 03/02/18 00:45 VBG Total CO2 29.9 mmol.L (22-28) H 03/02/18 00:45 VBG O2 Sat (Calc) 61.6 % (40-65) 03/02/18 00:45 VBG Base Excess 3.4 mmol/L (0.0-2.0) H 03/02/18 00:45 VBG Potassium 4.1 mmol/L (3.6-5.2) 03/02/18 00:45 Sodium 139.0 mmol/L (132-148) 03/02/18 00:45 Chloride 104.0 mmol/L (98-107) 03/02/18 00:45 Glucose 109 mg/dl (65-105) H 03/02/18 00:45 Lactate 0.9 mmol/L (0.7-2.1) 03/02/18 00:45 FiO2 21.0 % 03/02/18 00:45 Sodium 144 mmol/L (132-148) 03/04/18 07:35 Potassium 4.0 mmol/L (3.6-5.0) 03/04/18 07:35 Chloride 108 mmol/L (98-107) H 03/04/18 07:35 Carbon Dioxide 28 mmol/L (21-33) 03/04/18 07:35 Anion Gap 12 (10-20) 03/04/18 07:35 BUN 22 mg/dL (7-21) H 03/04/18 07:35 Creatinine 1.2 mg/dl (0.7-1.2) 03/04/18 07:35 Est GFR ( Amer) 53 03/04/18 07:35 Est GFR (Non-Af Amer) 44 03/04/18 07:35 Random Glucose 99 mg/dL (70-110) 03/04/18 07:35 Calcium 9.9 mg/dL (8.4-10.5) 03/04/18 07:35 Phosphorus 3.8 mg/dL (2.5-4.5) 03/03/18 05:30 Magnesium 2.2 mg/dL (1.7-2.2) 03/03/18 05:30 Total Bilirubin 0.2 mg/dL (0.2-1.3) 03/04/18 07:35 AST 25 U/L (14-36) 03/04/18 07:35 ALT 24 U/L (7-56) 03/04/18 07:35 Alkaline Phosphatase 110 U/L (38-126) 03/04/18 07:35 Lactate Dehydrogenase 643 U/L (333-699) 03/02/18 00:45 Total Creatine Kinase 87 U/L (35-230) 03/02/18 00:45 Troponin I 0.06 ng/mL D 03/02/18 12:40 Total Protein 7.4 g/dL (5.8-8.3) 03/04/18 07:35 Albumin 3.5 g/dL (3.0-4.8) 03/04/18 07:35 Globulin 4.0 gm/dL 03/04/18 07:35 Albumin/Globulin Ratio 0.9 (1.1-1.8) L 03/04/18 07:35 Procalcitonin 1.18 NG/ML (0.19-0.49) H 03/02/18 00:45 Venous Blood Potassium 4.1 mmol/L (3.6-5.2) 03/02/18 00:45 Urine Color Yellow (YELLOW) 03/02/18 02:00 Urine Appearance Clear (CLEAR) 03/02/18 02:00 Urine pH 7.0 (4.7-8.0) 03/02/18 02:00 Ur Specific Ethel 1.015 (1.005-1.035) 03/02/18 02:00 Urine Protein Negative mg/dL (<30 mg/dL) 03/02/18 02:00 Urine Glucose (UA) Negative mg/dL (NEGATIVE) 03/02/18 02:00 Urine Ketones Negative mg/dL (NEGATIVE) 03/02/18 02:00 Urine Blood Moderate (NEGATIVE) H 03/02/18 02:00 Urine Nitrate Negative (NEGATIVE) 03/02/18 02:00 Urine Bilirubin Negative (NEGATIVE) 03/02/18 02:00 Urine Urobilinogen 0.2 E.U./dL (<1 E.U./dL) 03/02/18 02:00 Ur Leukocyte Esterase Negative Ruby/uL (NEGATIVE) 03/02/18 02:00 Urine RBC 2 - 5 /hpf (0-2) 03/02/18 02:00 Urine WBC 0 - 2 /hpf (0-6) 03/02/18 02:00 Ur Epithelial Cells 0 - 2 /hpf (0-5) 03/02/18 02:00 Salicylates < 1 mg/dL (2.0-20.0) L 03/02/18 00:45 Urine Opiates Screen Positive (NEGATIVE) H 03/02/18 02:00 Urine Methadone Screen Negative (NEGATIVE) 03/02/18 02:00 Acetaminophen < 10.0 ug/ml (10.0-20.0) L 03/02/18 00:45 Ur Barbiturates Screen Negative (NEGATIVE) 03/02/18 02:00 Ur Phencyclidine Scrn Negative (NEGATIVE) 03/02/18 02:00 Ur Amphetamines Screen Negative (NEGATIVE) 03/02/18 02:00 U Benzodiazepines Scrn Negative (NEGATIVE) 03/02/18 02:00 U Oth Cocaine Metabols Negative (NEGATIVE) 03/02/18 02:00 U Cannabinoids Screen Negative (NEGATIVE) 03/02/18 02:00 Alcohol, Quantitative < 10 mg/dL (0-10) 03/02/18 00:45 Influenza Typ A,B (EIA) Negative for flu a/b (NEGATIVE) 03/02/18 00:45 - Hospital Course Hospital Course: 72 year old AA female with a past medical history significant for heroine abuse , asthma, HTN, [place], stroke and homelessness who was admitted for AMS secondary to RUL/LLL infectious bronchiolitis. Chest X-Ray showed mild to moderate vascular congestion. Chest CT showed findings most compatible with RUL/LLL infectious bronchiolitis and 2cm spiculated subpleural nodule in the RUL. Head CT and Brain MRI were negative for any acute intracranial processes. Patient had leukocytosis on admission that resolved throughout hospital course. Patient was started on IV Rocephin but refused IV access so PO Levaquin was started. Duonebs Q2H PRN for SOB and Tylenol PRN for fever were started. Neurology and ID were consulted. Norvasc 5mg PO daily was started for HTN. Nicoderm CQ TD was started for tobacco use disorder. Protonix and Heparin were started prophylactically. PT/OT recommended [facility] for discharge. Patient was discharged on to [facility] with instructions and prescriptions as written below. - Date & Time of H&P Date of H&P: 03/02/18 Time of H&P: 02:35 Discharge Exam - Head Exam Head Exam: ATRAUMATIC, NORMOCEPHALIC - Eye Exam Eye Exam: EOMI, Normal appearance Pupil Exam: NORMAL ACCOMODATION, PERRL - ENT Exam ENT Exam: Mucous Membranes Moist, Normal Exam - Neck Exam Neck exam: Full Rom, Normal Inspection - Respiratory Exam Respiratory Exam: Decreased Breath Sounds (RUL and LLL), NORMAL BREATHING PATTERN. absent: Accessory Muscle Use, Chest Wall Tenderness, Clear to PA & Lateral, Prolonged Expiratory Phase, Rales, Rhonchi, Wheezes, Respiratory Distress, Stridor, UNREMARKABLE - Cardiovascular Exam Cardiovascular Exam: REGULAR RHYTHM - GI/Abdominal Exam GI & Abdominal Exam: Normal Bowel Sounds, Unremarkable - Extremities Exam Extremities exam: full ROM, normal capillary refill, normal inspection, pedal pulses present - Back Exam Back exam: NORMAL INSPECTION - Neurological Exam Neurological exam: Alert, CN II-XII Intact, Oriented x3 - Psychiatric Exam Psychiatric exam: Normal Affect, Normal Mood - Skin Skin Exam: Dry, Intact, Normal Color, Warm Discharge Plan - Discharge Medications Prescriptions: levoFLOXacin [Levaquin] 500 mg PO DAILY #10 tab - Follow Up Plan Condition: FAIR Disposition: TRANSF TO SNF Instructions: Levofloxacin (Systemic), Pneumonia, Adult (DC), Altered Mental Status (DC), Drug Abuse and Drug Addiction (DC), Sepsis, Adult (DC), Opioid Use Disorder Additional Instructions: Please follow up with your primary care doctor within one week of discharge from rehab. If you do not have a primary care doctor, the [facility] [place] be used. Their contact information has been provided in this paperwork. Please complete the full course of Levaquin that you have been prescribed Please take all medications as prescribed If your symptoms worsen or persist, please seek emergency medical attention Referrals: [facility] [place] <Denice Chen - Last Filed: 03/04/18 18:37> Provider - Provider Date of Admission: 03/02/18 02:19 Attending physician: Denice Chen MD Hospital Course - Lab Results Lab Results: Most Recent Lab Values WBC 9.8 10^3/ul (4.5-11.0) 03/04/18 07:35 RBC 4.07 10^6/uL (3.5-6.1) 03/04/18 07:35 Hgb 12.3 g/dL (12.0-16.0) 03/04/18 07:35 Hct 36.4 % (36.0-48.0) 03/04/18 07:35 MCV 89.4 fl (80.0-105.0) 03/04/18 07:35 MCH 30.2 pg (25.0-35.0) 03/04/18 07:35 MCHC 33.8 g/dl (31.0-37.0) 03/04/18 07:35 RDW 13.4 % (11.5-14.5) 03/04/18 07:35 Plt Count 306 10^3/uL (120.0-450.0) 03/04/18 07:35 MPV 9.1 fl (7.0-11.0) 03/04/18 07:35 Gran % 71.5 % (50.0-68.0) H 03/02/18 12:40 Lymph % (Auto) 10.4 % (22.0-35.0) L 03/02/18 12:40 [place] % (Auto) 5.9 % (1.0-6.0) 03/02/18 12:40 Eos % (Auto) 12.1 % (1.5-5.0) H 03/02/18 12:40 Baso % (Auto) 0.1 % (0.0-3.0) 03/02/18 12:40 Gran # 9.71 (1.4-6.5) H 03/02/18 12:40 Lymph # (Auto) 1.4 (1.2-3.4) 03/02/18 12:40 [place] # (Auto) 0.8 (0.1-0.6) H 03/02/18 12:40 Eos # (Auto) 1.7 (0.0-0.7) H 03/02/18 12:40 Baso # (Auto) 0.02 K/mm3 (0.0-2.0) 03/02/18 12:40 PT 12.5 SECONDS (9.4-12.5) 03/02/18 00:45 INR 1.09 (0.93-1.08) H 03/02/18 00:45 APTT 31.8 Seconds (25.1-36.5) 03/02/18 00:45 pO2 29 mm/Hg (30-55) L 03/02/18 00:45 VBG pH 7.42 (7.32-7.43) 03/02/18 00:45 VBG pCO2 44.0 (40-60) 03/02/18 00:45 VBG HCO3 28.5 mmol/l (21-28) H 03/02/18 00:45 VBG Total CO2 29.9 mmol.L (22-28) H 03/02/18 00:45 VBG O2 Sat (Calc) 61.6 % (40-65) 03/02/18 00:45 VBG Base Excess 3.4 mmol/L (0.0-2.0) H 03/02/18 00:45 VBG Potassium 4.1 mmol/L (3.6-5.2) 03/02/18 00:45 Sodium 139.0 mmol/L (132-148) 03/02/18 00:45 Chloride 104.0 mmol/L (98-107) 03/02/18 00:45 Glucose 109 mg/dl (65-105) H 03/02/18 00:45 Lactate 0.9 mmol/L (0.7-2.1) 03/02/18 00:45 FiO2 21.0 % 03/02/18 00:45 Sodium 144 mmol/L (132-148) 03/04/18 07:35 Potassium 4.0 mmol/L (3.6-5.0) 03/04/18 07:35 Chloride 108 mmol/L (98-107) H 03/04/18 07:35 Carbon Dioxide 28 mmol/L (21-33) 03/04/18 07:35 Anion Gap 12 (10-20) 03/04/18 07:35 BUN 22 mg/dL (7-21) H 03/04/18 07:35 Creatinine 1.2 mg/dl (0.7-1.2) 03/04/18 07:35 Est GFR ( Amer) 53 03/04/18 07:35 Est GFR (Non-Af Amer) 44 03/04/18 07:35 Random Glucose 99 mg/dL (70-110) 03/04/18 07:35 Calcium 9.9 mg/dL (8.4-10.5) 03/04/18 07:35 Phosphorus 3.8 mg/dL (2.5-4.5) 03/03/18 05:30 Magnesium 2.2 mg/dL (1.7-2.2) 03/03/18 05:30 Total Bilirubin 0.2 mg/dL (0.2-1.3) 03/04/18 07:35 AST 25 U/L (14-36) 03/04/18 07:35 ALT 24 U/L (7-56) 03/04/18 07:35 Alkaline Phosphatase 110 U/L (38-126) 03/04/18 07:35 Lactate Dehydrogenase 643 U/L (333-699) 03/02/18 00:45 Total Creatine Kinase 87 U/L (35-230) 03/02/18 00:45 Troponin I 0.06 ng/mL D 03/02/18 12:40 Total Protein 7.4 g/dL (5.8-8.3) 03/04/18 07:35 Albumin 3.5 g/dL (3.0-4.8) 03/04/18 07:35 Globulin 4.0 gm/dL 03/04/18 07:35 Albumin/Globulin Ratio 0.9 (1.1-1.8) L 03/04/18 07:35 Procalcitonin 1.18 NG/ML (0.19-0.49) H 03/02/18 00:45 Venous Blood Potassium 4.1 mmol/L (3.6-5.2) 03/02/18 00:45 Urine Color Yellow (YELLOW) 03/02/18 02:00 Urine Appearance Clear (CLEAR) 03/02/18 02:00 Urine pH 7.0 (4.7-8.0) 03/02/18 02:00 Ur Specific Ethel 1.015 (1.005-1.035) 03/02/18 02:00 Urine Protein Negative mg/dL (<30 mg/dL) 03/02/18 02:00 Urine Glucose (UA) Negative mg/dL (NEGATIVE) 03/02/18 02:00 Urine Ketones Negative mg/dL (NEGATIVE) 03/02/18 02:00 Urine Blood Moderate (NEGATIVE) H 03/02/18 02:00 Urine Nitrate Negative (NEGATIVE) 03/02/18 02:00 Urine Bilirubin Negative (NEGATIVE) 03/02/18 02:00 Urine Urobilinogen 0.2 E.U./dL (<1 E.U./dL) 03/02/18 02:00 Ur Leukocyte Esterase Negative Ruby/uL (NEGATIVE) 03/02/18 02:00 Urine RBC 2 - 5 /hpf (0-2) 03/02/18 02:00 Urine WBC 0 - 2 /hpf (0-6) 03/02/18 02:00 Ur Epithelial Cells 0 - 2 /hpf (0-5) 03/02/18 02:00 Salicylates < 1 mg/dL (2.0-20.0) L 03/02/18 00:45 Urine Opiates Screen Positive (NEGATIVE) H 03/02/18 02:00 Urine Methadone Screen Negative (NEGATIVE) 03/02/18 02:00 Acetaminophen < 10.0 ug/ml (10.0-20.0) L 03/02/18 00:45 Ur Barbiturates Screen Negative (NEGATIVE) 03/02/18 02:00 Ur Phencyclidine Scrn Negative (NEGATIVE) 03/02/18 02:00 Ur Amphetamines Screen Negative (NEGATIVE) 03/02/18 02:00 U Benzodiazepines Scrn Negative (NEGATIVE) 03/02/18 02:00 U Oth Cocaine Metabols Negative (NEGATIVE) 03/02/18 02:00 U Cannabinoids Screen Negative (NEGATIVE) 03/02/18 02:00 Alcohol, Quantitative < 10 mg/dL (0-10) 03/02/18 00:45 Influenza Typ A,B (EIA) Negative for flu a/b (NEGATIVE) 03/02/18 00:45 Attending/Attestation - Attestation I have personally seen and examined this patient.: Yes I have fully participated in the care of the patient.: Yes I have reviewed all pertinent clinical information, including history, physical exam and plan: Yes Notes (Text): 03/04/18 18:36 attending note; Patient seen and examined with the resident. Patient is a 72 year old female with a past medical history significant for heroine abuse, asthma, hypertension, stroke and homelessness who was admitted for confusion secondary to sepsis. Patient is alert and awake and oriented. Denies any complaints. CT scan showed right upper lobe And left lower lobe infectious bronchiolitis. patient is currently afebrile and nontoxic. on IV Rocephin. ID evaluation appreciated. Cultures negative so far. chronic renal insufficiency; baseline creatinine is 1.3. chronic opiate use. Drug abuse cessation is strongly advised. PT evaluation appreciated. patient will be transferred to rehabilitation today. Upon discharge patient will follow-up with PMD of choice or [facility] clinic.
[2018-03-04 15:40] VITALS: PULSE 76; RESP 18; TEMP 98.7; O2SAT 98
== END 2018-03-04 17:03 | DRG 194 ==
LOC: ED 23:59 → ERH 03-02 02:19 → 2RNO 03-02 15:11 → 5RSO 03-03 13:56
PROVIDERS: ADMIT Internal Medicine; ATTEND Internal Medicine
DX: J18.9 Pneumonia, unspecified organism (principal); J21.9 Acute bronchiolitis, unspecified; F11.10 Opioid abuse, uncomplicated; I12.9 Hypertensive chronic kidney disease with stage 1 through stage 4 chronic kidney disease, or unspecified chronic kidney disease; N18.9 Chronic kidney disease, unspecified; J45.909 Unspecified asthma, uncomplicated; H91.91 Unspecified hearing loss, right ear; Z59.0 Homelessness; Z86.73 Personal history of transient ischemic attack (TIA), and cerebral infarction without residual deficits